=== PATIENT | female | born 1990 | race African-American/Black ===

== ENCOUNTER 2021-05-28 01:54 | Emergency (ER) | payer BC, MEDICAID ==
[~2021-05-28] VITALS: Ht 165.1 cm; Wt 55.0 kg
[2021-05-28] MEDS ORDERED: SODIUM CHLORIDE 0.9% 1,000 ML IV ONE ×2 (02:45→05:00)
[2021-05-28 02:50] LABS: BASOPHILS % 0.2 % (0.0-2.0); HEMATOCRIT. 34.2 % (36.0-48.0); HEMOGLOBIN. 11.1 g/dL (12.0-16.0); LYMPHOCYTES % 27.7 % (20.0-50.0); MEAN CORPUSCULAR HEMOGLOBIN 28.9 pg (28.0-32.0); MEAN CORPUSCULAR VOLUME 88.9 fL (81.0-99.0); MEAN PLATELET VOLUME 8.6 fl (7.4-10.4); MONOCYTES % 6.2 % (2.0-8.0); NEUTROPHILS % 63.9 % (40.0-76.0); PLATELET 276 x1000/uL (130-400); RED BLOOD CELL COUNT 3.85 mill/uL (4.2-5.4); RED CELL DISTRIBUTION WIDTH 14.9 % (11.6-14.6)
[2021-05-28 03:46] LABS: CHLORIDE 105 mEq/L (98-107)
[2021-05-28 03:58] LABS: B-HCG QUANTITATIVE 88972 mIU/mL (<3)
[2021-05-28] MEDS ORDERED: ACETAMINOPHEN 325MG TABLET PO ONE (05:15)
[2021-05-28 05:24] LABS: BASOPHILS % 0.1 % (0.0-2.0); EOSINOPHILS % 0.9 % (0.0-5.0); HEMOGLOBIN. 9.1 g/dL (12.0-16.0); LYMPHOCYTES % 15.7 % (20.0-50.0); MEAN CORPUSCULAR HEMOGLOBIN 29.5 pg (28.0-32.0); MONOCYTES % 4.8 % (2.0-8.0); NEUTROPHILS % 78.5 % (40.0-76.0); PLATELET 222 x1000/uL (130-400); RED BLOOD CELL COUNT 3.07 mill/uL (4.2-5.4); RED CELL DISTRIBUTION WIDTH 14.7 % (11.6-14.6)
[2021-05-28] MEDS ORDERED: MISOPROSTOL 200MCG TABLET PO ONE (05:45)
[2021-05-28] MEDS ORDERED: METHYLERGONOVINE MALEATE 0.2 MG/ML IM ONE (06:15)
[2021-05-28] MEDS ORDERED: METH PO (06:15)
[2021-05-28] MEDS ORDERED: IBUP-2028 MT (06:15)
[2021-05-28 07:08] VITALS: BP 98/56
== END 2021-05-28 07:09 | disposition home or self-care (01) ==
LOC: ER 01:54 → CANBEDREQ 17:24
DX: O03.9 Complete or unspecified spontaneous abortion without complication (principal); O20.9 Hemorrhage in early pregnancy, unspecified; O26.891 Other specified pregnancy related conditions, first trimester; J45.909 Unspecified asthma, uncomplicated; Z20.822 Contact with and (suspected) exposure to COVID-19; Z3A.01 Less than 8 weeks gestation of pregnancy
CPT/HCPCS: 36415; 76830; 76856; 80053; 84702; 85025; 86850; 86900; 86901; 87426; 96360; 96361; 99291; J2210; J7030